=== PATIENT | female | born 1975 | race Caucasian/White ===

== ENCOUNTER 2024-03-26 11:49 | Emergency (ER) | payer OTHER ==
[2024-03-26 12:59] VITALS: BP 110/71; PULSE 81; RESP 18; TEMP 97.7; BMI 25.2
== END 2024-03-26 13:32 | disposition home or self-care (01) ==
LOC: JERFT 11:49
DX: L25.5 Unspecified contact dermatitis due to plants, except food (principal)
CPT/HCPCS: 99283-25